=== PATIENT | female | born 1965 ===

== ENCOUNTER → 2020-03-10 | Outpatient (CLI) | payer BC ==
--- NOTE | 2020-03-11 02:46 | REP ---
Clinical: Sprain. Technique: AP and lateral views of the left forearm. Findings: No acute fracture dislocation. Osseous structures, joint spaces, and surrounding soft tissues appear normal. No obvious swelling. No subcutaneous emphysema or foreign body. Impression: Normal left forearm radiographs. Electronically Signed by George Roth MD 03/11/2020 02:37 A
--- NOTE | 2020-03-11 02:51 | REP ---
Clinical: Trauma. Left wrist spurring. Technique: AP, lateral, bilateral oblique views left wrist . Findings: The carpal bones, surrounding osseous structures, soft tissues, and joint spaces are normal. There is no evidence for acute fracture or dislocation. No subcutaneous emphysema or radiodense foreign body. Impression: Normal age-appropriate wrist series. No acute fracture or dislocation Electronically Signed by George Roth MD 03/11/2020 02:42 A
== END ==
LOC: M WUC 11:46
PROVIDERS: ATTEND Physician Assistant
DX: M77.12 Lateral epicondylitis, left elbow (principal); S63.512A Sprain of carpal joint of left wrist, initial encounter; X58.XXXA Exposure to other specified factors, initial encounter; Y92.9 Unspecified place or not applicable